=== PATIENT | male | born 1945 | race Caucasian/White ===

== ENCOUNTER 2019-10-06 11:03 | Inpatient (IN) | payer MEDICARE, BC ==
[2019-10-06] MEDS ORDERED: HYDROmorphone 1 MG/ML 1 ML SYRINGE IVP STA ×2 (11:22→12:59)
--- NOTE | 2019-10-06 11:22 | ED ---
General Adult HPI - General Stated complaint: Epigastric Pain Time Seen by Provider: 10/06/19 11:05 Source: patient, RN notes reviewed, old records reviewed - History of Present Illness Initial comments: This a 74-year-old male who presents emergency department from [facility]. Patient was evaluated there and had a CAT scan as well for his epigastric abdominal pain which started at midnight. They determined his ga llbladder was distended and they wanted to come here to get further evaluated. Patient's lab work was essentially normal except for white count of 11.7. Patient's troponin was normal and EKG was normal. Patient states the pain is in the epigastric to right upper quadrant region and is been improved with pain medications but does continue to come back once the pain medicines wear off. Patient denies any fever or chills. Patient states she is very nauseated. Patient denies diarrhea. - Related Data Allergies Allergy/AdvReac Type Severity Reaction Status Date / Time codeine Allergy Confusion Verified 10/06/19 11:25 Review of Systems ROS Statement: Those systems with pertinent positive or pertinent negative responses have been documented in the HPI. ROS Other: All systems not noted in ROS Statement are negative. General Exam - General Exam Comments Initial Comments: AGENERAL: Patient is well-developed and well-nourished. Patient is nontoxic and well- hydrated and is in mild distress. ENT: Neck is soft and supple. No significant lymphadenopathy is noted. Oropharynx is clear. Moist mucous membranes. Neck has full range of motion without eliciting any pain. EYES: The sclera were anicteric and conjunctiva were pink and moist. Extraocular movements were intact and pupils were equal round and reactive to light. Eyelids were unremarkable. PULMONARY: Unlabored respirations. Good breath sounds bilaterally. No audible rales rhonchi or wheezing was noted. CARDIOVASCULAR: There is a regular rate and rhythm without any murmurs gallops or rubs. ABDOMEN: Patient has right upper quadrant and epigastric abdominal pain on palpation SKIN: Skin is clear with no lesions or rashes and otherwise unremarkable. NEUROLOGIC: Patient is alert and oriented x3. Cranial nerves II through XII are grossly intact. Motor and sensory are also intact. Normal speech, volume and content. Symmetrical smile. MUSCULOSKELETAL: Normal extremities with adequate strength and full range of motion. No lower extremity swelling or edema. No calf tenderness. LYMPHATICS: No significant lymphadenopathy is noted PSYCHIATRIC: Normal psychiatric evaluation. Course Vital Signs 10/06/19 10/06/19 11:15 12:10 Temperature 98 F Pulse Rate 62 74 Respiratory 18 18 Rate Blood Pressure 171/90 181/94 O2 Sat by Pulse 97 97 Oximetry Medical Decision Making - Medical Decision Making Gallbladder is not thickened there are no gallstones and a common bile duct could not be visualized I spoke to Dr. Tatum he agreed to admit the patient he wanted the patient started on antibiotics and wanted Dr. quilesy consulted. - Lab Data Result diagrams: 10/06/19 11:34 10/06/19 11:34 Lab Results 10/06/19 10/06/19 10/06/19 Range/Units 11:34 11:34 11:34 WBC 18.6 H (3.8-10.6) k/uL RBC 5.50 (4.30-5.90) m/uL Hgb 16.8 (13.0-17.5) gm/dL Hct 50.3 (39.0-53.0) % MCV 91.5 (80.0-100.0) fL MCH 30.6 (25.0-35.0) pg MCHC 33.5 (31.0-37.0) g/dL RDW 12.7 (11.5-15.5) % Plt Count 110 L (150-450) k/uL Neutrophils % 90 % Lymphocytes % 5 % Monocytes % 4 % Eosinophils % 1 % Basophils % 0 % Neutrophils # 16.9 H (1.3-7.7) k/uL Lymphocytes # 0.8 L (1.0-4.8) k/uL Monocytes # 0.7 (0-1.0) k/uL Eosinophils # 0.1 (0-0.7) k/uL Basophils # 0.1 (0-0.2) k/uL Sodium 138 (137-145) mmol/L Potassium 4.9 (3.5-5.1) mmol/L Chloride 104 (98-107) mmol/L Carbon Dioxide 24 (22-30) mmol/L Anion Gap 10 mmol/L BUN 16 (9-20) mg/dL Creatinine 0.72 (0.66-1.25) mg/dL Est GFR (CKD-EPI)AfAm >90 (>60 ml/min/1.73 sqM) Est GFR (CKD-EPI)NonAf >90 (>60 ml/min/1.73 sqM) Glucose 128 H (74-99) mg/dL Calcium 9.2 (8.4-10.2) mg/dL Total Bilirubin 1.2 (0.2-1.3) mg/dL AST 38 (17-59) U/L ALT 34 (4-49) U/L Alkaline Phosphatase 71 (38-126) U/L Troponin I <0.012 (0.000-0.034) ng/mL Total Protein 7.2 (6.3-8.2) g/dL Albumin 4.4 (3.5-5.0) g/dL Lipase 48 (23-300) U/L Disposition Clinical Impression: Abdominal pain Disposition: ADMITTED IP TO THIS HOSP Referrals: Juma Gibbs MD [Primary Care Provider] - 1-2 days Time of Disposition: 12:51
[2019-10-06] MEDS ORDERED: ONDANSETRON 4 MG/2 ML VIAL IVP STA ×2 (11:45→21:40)
[2019-10-06 12:04] LABS: Basophils # (A) 0.1 k/uL (0-0.2); Basophils % (A) 0 %; Eosinophils # (A) 0.1 k/uL (0-0.7); Eosinophils % (A) 1 %; HCT 50.3 % (39.0-53.0); HGB 16.8 gm/dL (13.0-17.5); Lymphocytes # (A) 0.8 k/uL (1.0-4.8); Lymphocytes % (A) 5 %; MCH 30.6 pg (25.0-35.0); MCHC 33.5 g/dL (31.0-37.0); MCV 91.5 fL (80.0-100.0); Mean Platelet Volume 9.5; Monocytes # (A) 0.7 k/uL (0-1.0); Monocytes % (A) 4 %; Neutrophils # (A) 16.9 k/uL (1.3-7.7); Neutrophils % (A) 90 %; Platelet Count 110 k/uL (150-450); RDW 12.7 % (11.5-15.5); WBC 18.6 k/uL (3.8-10.6)
[2019-10-06 12:18] LABS: ALT 34 U/L (4-49); African American GFR (CKD) >90 (>60 ml/min/1.73 sqM); Albumin 4.4 g/dL (3.5-5.0); Anion Gap 10 mmol/L; Blood Urea Nitrogen 16 mg/dL (9-20); Calcium 9.2 mg/dL (8.4-10.2); Carbon Dioxide 24 mmol/L (22-30); Chloride 104 mmol/L (98-107); Glucose 128 mg/dL (74-99); Non-African American GFR(CKD) >90 (>60 ml/min/1.73 sqM); Sodium 138 mmol/L (137-145); Total Bilirubin 1.2 mg/dL (0.2-1.3); Total Protein 7.2 g/dL (6.3-8.2)
[2019-10-06 12:23] LABS: AST 38 U/L (17-59); Alkaline Phosphatase 71 U/L (38-126); Potassium 4.9 mmol/L (3.5-5.1)
--- NOTE | 2019-10-06 12:42 | US ---
EXAMINATION TYPE: US gallbladder DATE OF EXAM: 10/06/2019 COMPARISON: NONE CLINICAL HISTORY: Dilated gallbladder with right upper quadrant abdo. Patient states having a CT toda y at different facility that showed slightly dilated GB. Epigastric pain. EXAM MEASUREMENTS: Liver Length: 18.1 cm Gallbladder Wall: 0.3 cm Right Kidney: 9.6 x 5.8 x 5.6 cm Limited visualization due to overlying bowel gas Pancreas: Obscured by bowel gas Liver: Appears enlarged in size Gallbladder: size- 9.7 cm. No stones visualized Evidence for sonographic Ochoa's sign: neg CBD: Obscured by overlying bowel gas Right Kidney: No hydronephrosis or masses seen, IMPRESSION: 1. Hepatomegaly
[2019-10-06] MEDS ORDERED: SODIUM CHLORIDE 0.9% 1,000 ML IV ONE (12:51)
[2019-10-06] MEDS ORDERED: cloNIDine HCL 0.1 MG TAB PO PRN (14:07)
[2019-10-06] MEDS ORDERED: TEMAZEPAM 15 MG CAP PO PRN (14:07)
[2019-10-06] MEDS ORDERED: LORazepam 2 MG/ML INJ IV PRN (14:07)
[2019-10-06] MEDS: LEVOFLOXACIN 500MG-D5W PMX 500 MG in DEXTROSE/WATER 1 100ML.BAG IVPB SCH (15:39)
[2019-10-06] MEDS: PANTOPRAZOLE 40 MG/10 ML VIAL IVP SCH ×2 (15:39→21:34)
--- NOTE | 2019-10-06 15:55 | HP ---
HISTORY AND PHYSICAL CHIEF COMPLAINT: Abdominal pain. HISTORY OF PRESENT ILLNESS: This 74-year-old gentleman with a past medical history of hypertension, hyperlipidemia, history of hernia repair, shoulder surgery, being followed by Dr. Delroy Gibbs in the outpatient setting was apparently camping yesterday. Last night, the patient woke up with some nausea. The patient had epigastric abdominal pain mostly in the right quadrant at midnight and patient came to [facility] and gallbladder disease was suspected. A CT scan was done and the patient referred to [facility] for further evaluation and treatment. WBC was elevated. There is no history of fever, rigors or chills. No history of headache, loss of consciousness, seizures. PAST MEDICAL HISTORY: Hypertension, hyperlipidemia, history of shoulder surgery. MEDICATIONS: Lipitor 40 mg q.h.s., Ecotrin 81 mg q.h.s. ALLERGIES: CODEINE. FAMILY HISTORY: No history of heart disease or strokes in the family. SOCIAL HISTORY: No history of smoking. No history of alcohol intake. REVIEW OF SYSTEMS: ENT: No diminished vision. No diminished hearing. CARDIOVASCULAR: No angina or palpitations. RESPIRATION: No cough or hemoptysis. GI as mentioned earlier. : No dysuria. NERVOUS SYSTEM: No numbness or weakness. ALLERGY/IMMUNOLOGY: No asthma or hayfever. MUSCULOSKELETAL: As mentioned earlier. HEMATOLOGY/ONCOLOGY: No history of anemia. ENDOCRINE: No history of diabetes or hypothyroidism. CONSTITUTIONAL: As mentioned earlier. DERMATOLOGY: Negative. RHEUMATOLOGY: Negative. PSYCHIATRY: As mentioned earlier. PHYSICAL EXAMINATION: Alert and oriented times three. Pulse 82, blood pressure 161/87. Respiration 18, temperature 98 degrees, pulse ox 94% on 3 L. HEENT: Conjunctivae normal. NECK: No JVD. CARDIOVASCULAR: S1, S2 muffled. RESPIRATORY: Breath sounds diminished in the bases. No rhonchi. No crackles. ABDOMEN: Soft, mild diffuse discomfort on epigastrium and right upper quadrant. No guarding. No rigidity. No mass palpable. LEGS: No edema. No swelling. NERVOUS SYSTEM: Higher functions as mentioned. Moves all four limbs. No focal motor or sensory deficits. LYMPHATICS: No lymph nodes palpable in the neck, axillae or groin. SKIN: No ulcers, no rashes and no bleeding. JOINTS: No active deforming arthropathy. LABS: WBC 18.2, hemoglobin 15.8, platelets 110. Glucose 128. ASSESSMENT: 1. Acute upper abdominal pain possibly rule out cholecystitis. 2. Increased WBC. 3. Thrombocytopenia. 4. Increased random blood sugar. 5. Hypertension. 6. Hyperlipidemia. 7. History of shoulder surgery. 8. History of hernia repair. RECOMMENDATIONS AND DISCUSSION: In this 74-year-old gentleman who presented with multiple complex medical issues, we will monitor the patient closely. Continue the current medications, symptomatic treatment. We will initiate empiric antibiotics. Zosyn initiated. I would also recommend proton pump inhibitors. Surgical consultation. Ultrasound of the gallbladder was done which showed hepatomegaly. No other abnormality. Prognosis guarded. Further recommendations to follow. A copy of dictation being forwarded to Dr. Zeyad Gibbs who is the primary physician. YANETH / CACHORRON: [id number] /
[2019-10-06] MEDS: PIPERACILLIN-TAZOBACTAM 3.375 GM in SODIUM CHLORIDE 0.9% 100 ML IVPB SCH ×2 (17:33→23:28)
[2019-10-06 18:57] LABS: Appearance,Urine Clear (Clear); Bilirubin,Urine Negative (Negative); Blood,Urine Negative (Negative); Color,Urine Yellow; Glucose,Urine (UA) Negative (Negative); Ketones,Urine Negative (Negative); Leukocyte Esterase,Urine Negative (Negative); Nitrite,Urine Negative (Negative); PH, Urine 5.5 (5.0-8.0); Protein,Urine Negative (Negative); Specific Gravity,Urine 1.024 (1.001-1.035); Urobilinogen,Urine <2.0 mg/dL (<2.0)
[2019-10-06 19:06] LABS: Amphetamine Screen,Urine Not Detected (NotDetected); Cocaine Screen,Urine Not Detected (NotDetected); Opiate Screen,Urine Detected (NotDetected); Phencyclidine Screen,Urine Not Detected (NotDetected); Urn Cannabinoid Scrn Not Detected (NotDetected)
[2019-10-06 19:07] LABS: Barbiturate Screen,Urine Not Detected (NotDetected); Benzodiazepines Screen,Urine Detected (NotDetected); Methadone Screen, Urine Not Detected (NotDetected); Oxycodone Screen, Urine Not Detected (NotDetected); Tricyclic Antidepressant,Urine Not Detected (NotDetected)
--- NOTE | 2019-10-06 21:29 | NM ---
EXAMINATION TYPE: NM hepatobiliary wo EF DATE OF EXAM: 10/06/2019 COMPARISON: NONE HISTORY: TECHNIQUE: After the intravenous administration of 4.79 mCi Tc 99m Mebrofenin hepatobiliary scintigra phy is performed. Immediate images post injection. FINDINGS: There is prompt uptake of the tracer by the liver that has normal size and contour. There is no focal liver defect. There is tracer in the small bowel at 10 minutes. Tracer is mostly cleared from the li angel at 60 minutes. I do not see a definite gallbladder. No gallbladder uptake is seen. IMPRESSION: There is nonvisualization of the gallbladder that is suggestive of cystic duct obstructio n and cholecystitis. No evidence of common bile duct obstruction.
[2019-10-06] MEDS: FAMOTIDINE 20 MG/2 ML VIAL IV SCH (21:34)
[2019-10-06] MEDS: HEPARIN SODIUM,PORCINE 5,000 UNIT/ML 1 ML VIAL SQ SCH (21:34)
[2019-10-06] MEDS ORDERED: ONDANSETRON 4 MG/2 ML VIAL IVP PRN (23:57)
[2019-10-06] MEDS ORDERED: HYDROmorphone 0.5 MG/0.5 ML SYRINGE IVP PRN (23:58)
[2019-10-07] MEDS: PIPERACILLIN-TAZOBACTAM 3.375 GM in SODIUM CHLORIDE 0.9% 100 ML IVPB SCH ×3 (08:18→23:16)
[2019-10-07] MEDS: PANTOPRAZOLE 40 MG/10 ML VIAL IVP SCH ×2 (08:18→22:07)
[2019-10-07] MEDS: HEPARIN SODIUM,PORCINE 5,000 UNIT/ML 1 ML VIAL SQ SCH ×2 (08:18→22:08)
[2019-10-07] MEDS: FAMOTIDINE 20 MG/2 ML VIAL IV SCH (08:18)
[2019-10-07 08:42] LABS: Basophils # (A) 0.1 k/uL (0-0.2); Basophils % (A) 0 %; Eosinophils % (A) 0 %; HCT 44.9 % (39.0-53.0); HGB 15.2 gm/dL (13.0-17.5); Lymphocytes # (A) 1.3 k/uL (1.0-4.8); Lymphocytes % (A) 6 %; MCH 30.8 pg (25.0-35.0); MCHC 33.9 g/dL (31.0-37.0); MCV 90.9 fL (80.0-100.0); Mean Platelet Volume 7.4; Monocytes # (A) 1.2 k/uL (0-1.0); Monocytes % (A) 5 %; Neutrophils # (A) 20.4 k/uL (1.3-7.7); Neutrophils % (A) 88 %; RBC 4.94 m/uL (4.30-5.90); RDW 12.5 % (11.5-15.5); WBC 23.2 k/uL (3.8-10.6)
[2019-10-07 08:43] LABS: Albumin 3.5 g/dL (3.5-5.0); Calcium 8.3 mg/dL (8.4-10.2); Platelet Count 193 k/uL (150-450); Potassium 4.1 mmol/L (3.5-5.1); Total Bilirubin 1.4 mg/dL (0.2-1.3); Total Protein 5.8 g/dL (6.3-8.2)
[2019-10-07] MEDS: LEVOFLOXACIN 500MG-D5W PMX 500 MG in DEXTROSE/WATER 1 100ML.BAG IVPB SCH (15:35)
[2019-10-07] MEDS ORDERED: IV FLUID CONTINUATION 1,000 ML IV ONE (16:23)
--- NOTE | 2019-10-07 17:07 | P.GSCN ---
History of Present Illness Consult date: 10/07/19 History of present illness: This is a 74-year-old male is a former he states that over the last few days he began having worsening right upper quadrant pain which brought him to the hospital in [place] this hospital been transferred him to [facility]. Patient initially had an ultrasound which showed a distended gallbladder and a HIDA scan was then ordered which was positive for nonvisualization of gallbladder. Patient states that today he is still having right upper quadrant pain. He denies any fevers or chills. He's had an appendectomy before in the past. He has hypertension which is controlled no other medical or surgical history that significant. Past Medical History Past Medical History: Hyperlipidemia, Hypertension Additional Past Medical History / Comment(s): mumps History of Any Multi-Drug Resistant Organisms: None Reported Past Surgical History: Appendectomy, Hernia Repair Additional Past Surgical History / Comment(s): SHOULDER SX has had multiple hernia surgeries. Did have mesh, has since have remvoed. Past Anesthesia/Blood Transfusion Reactions: No Reported Reaction Past Psychological History: No Psychological Hx Reported Smoking Status: Never smoker Past Alcohol Use History: None Reported Past Drug Use History: None Reported - Past Family History Father Family Medical History: Myocardial Infarction (LA) Additional Family Medical History / Comment(s): had history of cancer, from [place] Mother Family Medical History: Coronary Artery Disease (CAD) Medications and Allergies Home Medications Medication Instructions Recorded Confirmed Type Aspirin [Adult Low Dose Aspirin EC] 81 mg PO HS 10/06/19 10/06/19 History Atorvastatin Calcium [Lipitor] 40 mg PO HS 10/06/19 10/06/19 History Allergies Allergy/AdvReac Type Severity Reaction Status Date / Time codeine Allergy Confusion Verified 10/06/19 13:14 Surgical - Exam Osteopathic Statement: *. No significant issues noted on an osteopathic structural exam other than those noted in the History and Physical/Consult. Vital Signs Temp Pulse Resp BP Pulse Ox 98 F 62 18 171/90 97 10/06/19 11:15 10/06/19 11:15 10/06/19 11:15 10/06/19 11:15 10/06/19 11:15 - General well developed, well nourished, no distress - Neck no masses - Respiratory normal expansion, normal respiratory effort - Cardiovascular Rhythm: regular - Abdomen Tender to palpation right upper quadrant no rebound rigidity or guarding Abdomen: soft - Neurologic normal coordination, normal sensation Results - Labs 10/07/19 07:27 10/07/19 07:27 Abnormal Lab Results - Last 24 Hours (Table) 10/06/19 10/07/19 10/07/19 Range/Units 18:49 07:27 07:27 WBC 23.2 H (3.8-10.6) k/uL Neutrophils # 20.4 H (1.3-7.7) k/uL Monocytes # 1.2 H (0-1.0) k/uL Sodium 135 L (137-145) mmol/L Calcium 8.3 L (8.4-10.2) mg/dL Total Bilirubin 1.4 H (0.2-1.3) mg/dL Total Protein 5.8 L (6.3-8.2) g/dL Urine Opiates Screen Detected H (NotDetected) U Benzodiazepines Scrn Detected H (NotDetected) Diabetes panel 10/07/19 Range/Units 07:27 Sodium 135 L (137-145) mmol/L Potassium 4.1 (3.5-5.1) mmol/L Chloride 102 (98-107) mmol/L Carbon Dioxide 24 (22-30) mmol/L BUN 14 (9-20) mg/dL Creatinine 0.99 (0.66-1.25) mg/dL Glucose 89 (74-99) mg/dL Calcium 8.3 L (8.4-10.2) mg/dL AST 24 (17-59) U/L ALT 25 (4-49) U/L Alkaline Phosphatase 55 (38-126) U/L Total Protein 5.8 L (6.3-8.2) g/dL Albumin 3.5 (3.5-5.0) g/dL Calcium panel 10/07/19 Range/Units 07:27 Calcium 8.3 L (8.4-10.2) mg/dL Albumin 3.5 (3.5-5.0) g/dL Pituitary panel 10/07/19 Range/Units 07:27 Sodium 135 L (137-145) mmol/L Potassium 4.1 (3.5-5.1) mmol/L Chloride 102 (98-107) mmol/L Carbon Dioxide 24 (22-30) mmol/L BUN 14 (9-20) mg/dL Creatinine 0.99 (0.66-1.25) mg/dL Glucose 89 (74-99) mg/dL Calcium 8.3 L (8.4-10.2) mg/dL Adrenal panel 10/07/19 Range/Units 07:27 Sodium 135 L (137-145) mmol/L Potassium 4.1 (3.5-5.1) mmol/L Chloride 102 (98-107) mmol/L Carbon Dioxide 24 (22-30) mmol/L BUN 14 (9-20) mg/dL Creatinine 0.99 (0.66-1.25) mg/dL Glucose 89 (74-99) mg/dL Calcium 8.3 L (8.4-10.2) mg/dL Total Bilirubin 1.4 H (0.2-1.3) mg/dL AST 24 (17-59) U/L ALT 25 (4-49) U/L Alkaline Phosphatase 55 (38-126) U/L Total Protein 5.8 L (6.3-8.2) g/dL Albumin 3.5 (3.5-5.0) g/dL Assessment and Plan Assessment: Acute cholecystitis Plan: I discussed the findings of acute cholecystitis the patient risks benefits and alternatives to laparoscopic cholecystectomy were discussed risks including bleeding infection damage surrounding tissue need for further operation damage to common bile duct and need for conversion to open were all discussed patient stated he understood these agreed and consented to the procedure. Informed consent was obtained. Nothing by mouth and on IV antibiotics until surgery.
[2019-10-07] MEDS ORDERED: PROPOFOL 10 MG/ML 20 ML VIAL IV ONE (17:09)
[2019-10-07] MEDS ORDERED: MIDAZOLAM 2 MG/2 ML VIAL ONE (17:09)
[2019-10-07] MEDS ORDERED: LIDOCAINE 1% INJ 10MG/ML (20 ML MDV) ONE (17:09)
[2019-10-07] MEDS ORDERED: fentaNYL (PF) 50 MCG/ML 2 ML AMP ONE (17:09)
[2019-10-07] MEDS ORDERED: ROCURONIUM BROMIDE 10 MG/ML 5 ML VIAL IV ONE (17:09)
[2019-10-07] MEDS ORDERED: ONDANSETRON 4 MG/2 ML VIAL ONE (17:09)
[2019-10-07] MEDS ORDERED: SUCCINYLCHOLINE CHLORIDE 100 MG/5 ML SYR IV ONE (17:09)
[2019-10-07] MEDS ORDERED: LACTATED RINGERS 1,000 ML IV ONE (17:30)
[2019-10-07] MEDS ORDERED: BUPIVACAINE (PF) 0.5% 30 ML VIAL SQ ONE ×2 (17:37)
--- NOTE | 2019-10-07 19:11 | P.OP ---
Date of Procedure: 10/07/19 Preoperative Diagnosis: Acute cholecystitis Postoperative Diagnosis: Acute cholecystitis Procedure(s) Performed: Laparoscopic cholecystectomy Anesthesia: ALEX Surgeon: Guanakito Llanes Estimated Blood Loss (ml): 100 Condition: stable Disposition: PACU Description of Procedure: Patient was brought operative suite remained in the supine position underwent general endotracheal anesthesia per Department of anesthesia timeout was performed correct patient correct procedure correct site was verified. A 15 mm incision was made carried down the fascia in the superior umbilicus. The abdomen was entered under direct visualization 12 mm port was placed abdomen was insufflated no injuries were noted. 3 5mm ports were placed in the right upper quadrant under direct visualization the patient was placed in reverse Trendelenburg right side up the gallbladder was noted to be acutely inflamed with omentum densely adhered. The adhesions to the gallbladder were taken down bluntly the cystic duct and cystic artery were skeletonized critical view was obtained the cystic duct was noted to be going directly into the gallbladder it was also noted to be quite dilated the midepigastric port site was upsized to a 12 mm port and a 45 mm purple load Endo SHARIFA stapler was used to staple across the cystic duct. The cystic artery was doubly clipped and ligated. The gallbladder was removed from the liver bed using Bovie electrocautery. Due to the acute inflammation on the liver bed there was some oozing this was controlled with pressure and Surgicel. LUIS MIGUEL drain was placed. Hemostasis was noted the abdomen was copiously irrigated and suctioned. The gallbladder was removed through the midepigastric port site. All ports removed under direct visualization. The abdomen was desufflated. The LUIS MIGUEL drain was sutured in place with a 3-0 silk the fascia from the supraumbilical and epigastric port sites was closed with 0 Vicryl in an interrupted fashion the skin was closed with 4-0 Monocryl and skin glue patient tolerated the procedure well no apparent complications
--- NOTE | 2019-10-08 02:39 | PN ---
PROGRESS NOTE DATE OF SERVICE: 10/07/2019 This 74-year-old gentleman who was admitted with abdominal pain, was thought to have acute cholecystitis. Surgery is following the patient closely. No chest pain or palpitation. PHYSICAL EXAMINATION: On exam, alert and oriented x3. Pulse 97, blood pressure 138/74, respiration 12, T-max 100.2, temperature 97 degrees, pulse ox 92% on room air. HEENT: Conjunctivae normal. NECK: No jugular venous distention. CARDIOVASCULAR: S1, S2 muffled. RESPIRATORY: Breath sounds diminished at the bases. No rhonchi, no crackles. ABDOMEN: Soft, mild diffuse tenderness in the right upper quadrant. NERVOUS SYSTEM: No focal deficits. LABS: WBC is 23.2, hemoglobin 15.2 sodium 135, total bilirubin is 1.4. positive. ASSESSMENT: 1. Acute abdominal pain with acute cholecystitis. 2. Increased WBC. 3. Thrombocytopenia. 4. Increased random blood sugar. 5. Hypertension. 6. Hyperlipidemia. 7. History of shoulder surgery. 8. History of hernia repair. RECOMMENDATIONS AND DISCUSSION: Recommend to continue current medications, continue symptomatic treatment. Otherwise, would recommend follow closely with surgery for possible cholecystectomy. Guarded prognosis. Further recommendations to follow. MMODL / IJN: [id number] / STEPHAN
[2019-10-08 06:42] LABS: Basophils % (A) 0 %; Eosinophils # (A) 0.1 k/uL (0-0.7); Eosinophils % (A) 1 %; HCT 42.3 % (39.0-53.0); Lymphocytes # (A) 1.3 k/uL (1.0-4.8); Lymphocytes % (A) 9 %; MCH 30.2 pg (25.0-35.0); MCHC 33.2 g/dL (31.0-37.0); MCV 91.1 fL (80.0-100.0); Mean Platelet Volume 7.3; Monocytes # (A) 0.6 k/uL (0-1.0); Monocytes % (A) 4 %; Neutrophils # (A) 12.3 k/uL (1.3-7.7); Neutrophils % (A) 85 %; Platelet Count 174 k/uL (150-450); RBC 4.65 m/uL (4.30-5.90); RDW 12.5 % (11.5-15.5); WBC 14.5 k/uL (3.8-10.6)
[2019-10-08 06:52] LABS: Calcium 8.1 mg/dL (8.4-10.2); Total Bilirubin 1.3 mg/dL (0.2-1.3); Total Protein 5.3 g/dL (6.3-8.2)
[2019-10-08] MEDS: PANTOPRAZOLE 40 MG/10 ML VIAL IVP SCH ×2 (07:24→22:06)
[2019-10-08] MEDS: HEPARIN SODIUM,PORCINE 5,000 UNIT/ML 1 ML VIAL SQ SCH ×2 (07:24→22:06)
[2019-10-08] MEDS: PIPERACILLIN-TAZOBACTAM 3.375 GM in SODIUM CHLORIDE 0.9% 100 ML IVPB SCH (07:24)
--- NOTE | 2019-10-08 16:24 | P.PN ---
Subjective Progress Note Date: 10/08/19 Patient is feeling much better today, tolerating clears no complaints. Objective - Vital Signs Vital signs: Vital Signs Temp 98.9 F 10/07/19 23:00 Pulse 89 10/07/19 23:00 Resp 16 10/07/19 23:00 BP 134/75 10/07/19 23:00 Pulse Ox 94 L 10/07/19 23:00 Intake & Output 10/07/19 10/08/19 10/08/19 18:59 06:59 18:59 Intake Total 1600 100 560 Output Total 071 695 8418 Balance 8016 -592 -362 Intake: IV 500 100 Intake, IV Titration 1100 Amount Levofloxacin 500Mg-D5w 1000 Pmx 500 mg In Dextrose/ Water 1 100ml.bag @ 100 mls/hr IVPB Q24H COUNT INCLUDES THE [facility] Rx#: [id number] Piperacillin-Tazobactam 3 100 .375 gm In Sodium Chloride 0.9% 100 ml @ 25 mls/hr IVPB Q8HR ANGELY Rx# :[id number] Oral 560 Output: Drainage 55 25 Right Abdomen 55 25 Urine 775 1000 Estimated Blood Loss 100 Other: Voiding Method Toilet Urinal Urinal # Voids 1 - Constitutional General appearance: Present: cooperative - Respiratory Details: nonlabored - Cardiovascular Rhythm: regular - Gastrointestinal Gastrointestinal Comment(s): S/NT/ND LUIS MIGUEL serosang - Psychiatric Psychiatric: Present: A&O x's 3 - Labs CBC & Chem 7: 10/08/19 05:53 10/08/19 05:53 Labs: Abnormal Lab Results - Last 24 Hours (Table) 10/08/19 10/08/19 Range/Units 05:53 05:53 WBC 14.5 H (3.8-10.6) k/uL Neutrophils # 12.3 H (1.3-7.7) k/uL Sodium 135 L (137-145) mmol/L Calcium 8.1 L (8.4-10.2) mg/dL Total Protein 5.3 L (6.3-8.2) g/dL Albumin 3.0 L (3.5-5.0) g/dL Microbiology - Last 24 Hours (Table) 10/06/19 19:15 Blood Culture - Preliminary Blood No Growth after 24 hours Assessment and Plan Assessment: Acute cholecystitis Plan: Patient doing well today, advance to low fat diet as tolerated. Likely will be ready for DC home tomorrow pending AM labs. LUIS MIGUEL will be DCed prior to discharge.
--- NOTE | 2019-10-08 17:22 | PN ---
PROGRESS NOTE DATE OF SERVICE: 10/08/2019 This 74-year-old gentleman admitted with acute cholecystitis had laparoscopic cholecystectomy by Dr. Llanes yesterday. No chest pain. No palpitations. No fever. PHYSICAL EXAMINATION: Alert and oriented x3. Pulse is 89, blood pressure 134/75, respirations 16, temperature 98.9, pulse ox 94% on 3 L. HEENT: Conjunctivae normal. NECK: No jugular venous distention. CARDIOVASCULAR SYSTEM: S1, S2 muffled. RESPIRATORY SYSTEM: Breath sounds diminished at the bases. No rhonchi. No crackles. ABDOMEN: Soft. Mild diffuse tenderness. LEGS: No edema. No swelling. NERVOUS SYSTEM: No focal deficit. LABS: WBC 14.4. Sodium is 135. Albumin is 3. ASSESSMENT: 1. Acute abdominal pain with acute cholecystitis, status post laparoscopic cholecystectomy. 2. Increased white count. 3. Thrombocytopenia. 4. Increased random blood sugar. 5. Hypertension. 6. Hyperlipidemia. 7. History of shoulder surgery. 8. History of hernia repair. RECOMMENDATIONS AND DISCUSSION: I recommend to continue current medications, continue with IV antibiotics. Otherwise, closely follow with Surgery. Incentive spirometry. Further recommendations to follow. MMODL / IJN: [id number] /
[2019-10-09 07:03] LABS: Basophils % (A) 0 %; Eosinophils # (A) 0.3 k/uL (0-0.7); Eosinophils % (A) 3 %; HCT 41.4 % (39.0-53.0); HGB 13.9 gm/dL (13.0-17.5); Lymphocytes # (A) 1.3 k/uL (1.0-4.8); Lymphocytes % (A) 14 %; MCH 30.6 pg (25.0-35.0); MCHC 33.6 g/dL (31.0-37.0); Mean Platelet Volume 7.4; Monocytes # (A) 0.6 k/uL (0-1.0); Monocytes % (A) 6 %; Neutrophils % (A) 74 %; Platelet Count 215 k/uL (150-450); RBC 4.55 m/uL (4.30-5.90); RDW 12.5 % (11.5-15.5); WBC 9.4 k/uL (3.8-10.6)
[2019-10-09 07:04] LABS: ALT 38 U/L (4-49); AST 32 U/L (17-59); African American GFR (CKD) >90 (>60 ml/min/1.73 sqM); Albumin 3.1 g/dL (3.5-5.0); Alkaline Phosphatase 61 U/L (38-126); Anion Gap 6 mmol/L; Blood Urea Nitrogen 14 mg/dL (9-20); Calcium 7.9 mg/dL (8.4-10.2); Carbon Dioxide 27 mmol/L (22-30); Chloride 104 mmol/L (98-107); Glucose 99 mg/dL (74-99); Non-African American GFR(CKD) 86 (>60 ml/min/1.73 sqM); Potassium 4.1 mmol/L (3.5-5.1); Sodium 137 mmol/L (137-145); Total Bilirubin 0.8 mg/dL (0.2-1.3); Total Protein 5.4 g/dL (6.3-8.2)
[2019-10-09 08:07] VITALS: BP 148/92; PULSE 83; RESP 14; TEMP 98.5
[2019-10-09] MEDS: PANTOPRAZOLE 40 MG/10 ML VIAL IVP SCH (08:27)
[2019-10-09] MEDS: HEPARIN SODIUM,PORCINE 5,000 UNIT/ML 1 ML VIAL SQ SCH (08:27)
--- NOTE | 2019-10-09 17:49 | P.DS ---
Providers Date of admission: 10/08/19 11:16 Attending physician: Shonna Tatum Consults: 10/06/19 12:51 Consult Physician Urgent Consulting Provider: Guanakito Llanes Consult Reason/Comments: Abdominal pain Do you want consulting provider notified?: Yes Primary care physician: Juma Gibbs MD Hospital Course: 74-year-old pleasant gentleman was admitted the secondary to acute cholecystitis and patient went underwent laparoscopic cholecystectomy clinically doing well pain free patient the has good bowel sounds is passing gas is cleared for discharge from surgical perspective is being discharged today. PHYSICAL EXAMINATION: GENERAL: The patient is alert and oriented x3, not in any acute distress. Well developed, well nourished. HEENT: Pupils are round and equally reacting to light. EOMI. No scleral icterus. No conjunctival pallor. Normocephalic, atraumatic. No pharyngeal erythema. No thyromegaly. CARDIOVASCULAR: S1 and S2 present. No murmurs, rubs, or gallops. PULMONARY: Chest is clear to auscultation, no wheezing or crackles. ABDOMEN: Soft, nontender, nondistended, normoactive bowel sounds. No palpable organomegaly. MUSCULOSKELETAL: No joint swelling or deformity. EXTREMITIES: No cyanosis, clubbing, or pedal edema. NEUROLOGICAL: Gross neurological examination did not reveal any focal deficits. SKIN: No rashes. For other chronic medical problems aspiration course please refer to the HPI and progress note from Plan - Discharge Summary Discharge Rx Participant: Yes New Discharge Prescriptions: No Action Atorvastatin Calcium [Lipitor] 40 mg PO HS Aspirin [Adult Low Dose Aspirin EC] 81 mg PO HS Discharge Medication List Aspirin [Adult Low Dose Aspirin EC] 81 mg PO HS 10/06/19 [History] Atorvastatin Calcium [Lipitor] 40 mg PO HS 10/06/19 [History] Follow up Appointment(s)/Referral(s): Guanakito Llanes DO [Doctor of Osteopathic Medicine] - 1 Week Juma Gibbs MD [Primary Care Provider] - 3 Days Patient Instructions/Handouts: Cholecystitis (GEN), Laparoscopic Cholecystectomy (DC) Discharge Disposition: HOME SELF-CARE
--- NOTE | 2019-10-11 13:46 | CDI ---
Documentation Clarification Form Date: 10/11/19 From: Lori Herring CCS Phone: If you have a question about this query, please contact Daniella Gross, Slitter Helper at [phone] between 8am and 5pm. Admit Date: 10/08/19 Discharge Date: 10/09/19 Patient Name: Rocky Holt Visit Number: [id number] ATTENTION: The Clinical Documentation Specialists (CDI) and [facility] Coding Staff appreciate your assistance in clarifying documentation. Please respond to the clarification below the line at the bottom and electronically sign. The CDI & [facility] Coding staff will review the response and follow-up if needed. Please note: Queries are made part of the Legal Health Record. If you have any questions, please contact the author of this message via ITS. Dear Dr. Mike, The final diagnosis of the pathology report states: Gangrenous acute cholecystitis Documentation states: Acute cholecystitis Patient history/risk factors: HTN, Thrombocytopenia Clinical Indicators: Acute cholecystitis Treatment: Laparoscopic cholecystectomy In your professional opinion, do you agree with the pathology report specifying gangrenous acute cholecystitis? Yes No Other (please specify) Unable to determine Yes MTDD
== END 2019-10-09 15:15 | disposition home or self-care (01) | DRG 419 ==
LOC: EC 11:03 → 1SOBS 12:51 → OBSVTOIN 10-08 11:16
PROVIDERS: ADMIT Hospitalist; ATTEND Hospitalist
PROC: 0FT44ZZ Resection of Gallbladder, Percutaneous Endoscopic Approach (ICD-10-PCS; principal; 2019-10-07 15:30)
DX: K81.0 Acute cholecystitis (principal); Z11.59 Encounter for screening for other viral diseases; K82.A1 Gangrene of gallbladder in cholecystitis; D69.6 Thrombocytopenia, unspecified; I10 Essential (primary) hypertension; E78.5 Hyperlipidemia, unspecified; Z79.82 Long term (current) use of aspirin; Z79.899 Other long term (current) drug therapy; Z98.890 Other specified postprocedural states; Z90.49 Acquired absence of other specified parts of digestive tract; Z88.5 Allergy status to narcotic agent; Z82.49 Family history of ischemic heart disease and other diseases of the circulatory system; Z80.9 Family history of malignant neoplasm, unspecified
CPT/HCPCS: 36415; 76705; 78226; 80053; 80306; 81003; 83690; 84484; 85025; 85652; 86140; 87040; 88304; 96361; 96374; 96375; 96376; 99285

== ENCOUNTER 2022-03-08 15:58 | Inpatient (IN) | payer MEDICARE, BC ==
[2022-03-08 17:41] LABS: Basophils # (A) 0.1 k/uL (0-0.2); Basophils % (A) 0 %; Eosinophils % (A) 0 %; HCT 45.3 % (39.0-53.0); HGB 15.3 gm/dL (13.0-17.5); Lymphocytes # (A) 0.6 k/uL (1.0-4.8); Lymphocytes % (A) 3 %; MCH 30.3 pg (25.0-35.0); MCHC 33.7 g/dL (31.0-37.0); MCV 89.8 fL (80.0-100.0); Mean Platelet Volume 8.4; Monocytes # (A) 0.9 k/uL (0-1.0); Monocytes % (A) 4 %; Neutrophils # (A) 18.2 k/uL (1.3-7.7); Neutrophils % (A) 92 %; Platelet Count 274 k/uL (150-450); RBC 5.04 m/uL (4.30-5.90); RDW 12.7 % (11.5-15.5); WBC 19.8 k/uL (3.8-10.6)
[2022-03-08 17:49] LABS: INR 1.1 (<1.2); Partial Thromboplastin Time 24.6 sec (22.0-30.0); Prothrombin Time 11.3 sec (9.0-12.0)
[2022-03-08 17:50] LABS: ALT 273 U/L (4-49); AST 258 U/L (17-59); African American GFR (CKD) >90 (>60 ml/min/1.73 sqM); Alkaline Phosphatase 508 U/L (38-126); Amylase 50 U/L (30-110); Anion Gap 12 mmol/L; Blood Urea Nitrogen 15 mg/dL (9-20); Calcium 9.5 mg/dL (8.4-10.2); Carbon Dioxide 20 mmol/L (22-30); Chloride 103 mmol/L (98-107); Glucose 134 mg/dL (74-99); Lipase 221 U/L (23-300); Non-African American GFR(CKD) 88 (>60 ml/min/1.73 sqM); Sodium 135 mmol/L (137-145); Total Bilirubin 8.4 mg/dL (0.2-1.3); Total Protein 7.1 g/dL (6.3-8.2)
--- NOTE | 2022-03-08 18:02 | XR ---
EXAMINATION TYPE: XR KUB DATE OF EXAM: 03/08/2022 5:45 PM INDICATION: Patient age:Male; 77 years old; Reason for study: abdominal pain; COMPARISON: None. TECHNIQUE: One radiographic view of the abdomen was obtained. FINDINGS: The bowel gas pattern is nonspecific without dilated loops of small or large bowel. There i s no evidence for organomegaly or pneumoperitoneum. The osseous structures are intact. No abnormal calcifications are present. Fecal material and gas are demonstrated throughout the colon and rectum. Right upper quadrant cholecystectomy clips. IMPRESSION: Nonspecific bowel gas pattern without radiographic evidence for acute process.
--- NOTE | 2022-03-08 19:25 | US ---
EXAMINATION TYPE: US gallbladder DATE OF EXAM: 03/08/2022 COMPARISON: 10/06/19 CLINICAL HISTORY: abdominal pain. epigastric pain x 1 day. Cholecystectomy 3 years ago TECHNIQUE: Multiple sonographic images of the right upper quadrant are obtained. FINDINGS: EXAM MEASUREMENTS: Liver Length: 16.9 cm Gallbladder Wall: Surgically absent CBD: 1.0 cm Right Kidney: 10.5 x 5.3 x 5.5 cm [facility] NOTES: Pancreas: Parts visualized appear wnl. Duct measuring 3.2mm Liver: wnl Gallbladder: Surgically absent Evidence for sonographic Ochoa's sign: No CBD: upper limits of normal for post cholecystectomy Right Kidney: Dilated renal pelvis IMPRESSION: Cholecystectomy. There is mild ectasia of the bile ducts which appear slightly increased compared to old exam.
[2022-03-08] MEDS ORDERED: MORPHINE SULFATE 4 MG/ML SYRINGE IVP STA (20:43)
[2022-03-08] MEDS ORDERED: NALOXONE 0.4 MG/ML 1 ML VIAL IV PRN (21:48)
--- NOTE | 2022-03-08 22:01 | ED ---
General Adult HPI - General Chief complaint: Abdominal Pain Stated complaint: Chest pain Time Seen by Provider: 03/08/22 19:27 Source: patient Mode of arrival: wheelchair Limitations: no limitations - History of Present Illness Initial comments: This is a 77-year-old male who is presenting to the [facility] department today because he was sent in by the emergency department by his GI physician for a planned surgery tomorrow. The patient has a likely bile duct stone and had increasing bilirubin levels. The patient was seen and evaluated by Dr. Simmons in the office today who did recommend the patient come to the emergency department to be admitted for a procedure tomorrow morning. The patient was increasingly jaundiced with increasing right upper quadrant pain at this time. The patient denied any other acute pain or complaints at this time. The patient stated that he has had decreased appetite as well as inability to sleep secondary to continued abdominal pain and discomfort. The patient denied any fevers and chills however. - Related Data Home Medications Medication Instructions Recorded Confirmed Atorvastatin Calcium [Lipitor] 40 mg PO HS 10/06/19 10/06/19 Acetaminophen/Diphenhydramine 1 tab PO HS 03/08/22 03/08/22 [Tylenol PM 500-25mg] Losartan Potassium [Cozaar] 25 mg PO DAILY 03/08/22 03/08/22 Allergies Allergy/AdvReac Type Severity Reaction Status Date / Time codeine Allergy Confusion Verified 03/08/22 21:15 Review of Systems ROS Statement: Those systems with pertinent positive or pertinent negative responses have been documented in the HPI. ROS Other: All systems not noted in ROS Statement are negative. Past Medical History Past Medical History: Hyperlipidemia, Hypertension Additional Past Medical History / Comment(s): mumps History of Any Multi-Drug Resistant Organisms: None Reported Past Surgical History: Appendectomy, Hernia Repair Additional Past Surgical History / Comment(s): SHOULDER SX has had multiple hernia surgeries. Did have mesh, has since have remvoed. Past Anesthesia/Blood Transfusion Reactions: No Reported Reaction Past Psychological History: No Psychological Hx Reported Past Alcohol Use History: None Reported Past Drug Use History: None Reported - Past Family History Father Family Medical History: Myocardial Infarction ([place]) Additional Family Medical History / Comment(s): had history of cancer, from [place] Mother Family Medical History: Coronary Artery Disease (CAD) General Exam Limitations: no limitations General appearance: alert, in no apparent distress Head exam: Present: atraumatic, normocephalic Eye exam: Present: normal appearance, PERRL Pupils: Present: normal accommodation ENT exam: Present: normal exam, normal oropharynx, mucous membranes moist Neck exam: Present: normal inspection, full ROM Respiratory exam: Present: normal lung sounds bilaterally Cardiovascular Exam: Present: regular rate, normal rhythm, normal heart sounds GI/Abdominal exam: Present: soft, tenderness (Tenderness noted in the right uppe r quadrant) Extremities exam: Present: normal inspection, full ROM, normal capillary refill Back exam: Present: normal inspection, full ROM Neurological exam: Present: alert, oriented X3, CN II-XII intact Psychiatric exam: Present: normal affect, normal mood Skin exam: Present: warm, dry, other (Jaundiced) Course Vital Signs 03/08/22 03/08/22 16:30 20:25 Temperature 98.7 F Pulse Rate 99 95 Respiratory 20 18 Rate Blood Pressure 149/63 148/84 O2 Sat by Pulse 95 95 Oximetry Medical Decision Making - Medical Decision Making The patient was seen and evaluated numerous department. Physical exam, the patient was resting in bed without any acute distress. Vital signs admission were stable and within normal limits. Due to the nature the patient's complaints, laboratory workup was obtained in triage including a KUB x-ray as well as ultrasound of the right upper quadrant. Laboratory workup was also obtained that showed an elevated white blood cell count as well as significant elevated liver enzymes including a bilirubin of 8.4. KUB x-ray was obtained and was interpreted by myself showing a nonspecific bowel gas pattern without e vidence of acute process. The right upper quadrant abdominal ultrasound was also obtained and was interpreted by myself. Ultrasound showed cholecystectomy with mild ectasia of the bile ducts which appears of the increased compared to the old exam. His findings in the setting of the GI physician Dr. Simmons was contacted at [phone] and she did not recommend any further intervention or management excepted IV with pain medications. The patient was made nothing by mouth at midnight. The patient was to be admitted to Dr. Tatum and Guanakito Angulo was contacted at [phone] for admission and accepted. The patient and his are told of this plan and were agreeable. The patient was admitted in stable c ondition. - Lab Data Result diagrams: 03/08/22 16:56 03/08/22 16:56 Lab Results 03/08/22 03/08/22 03/08/22 Range/Units 16:56 16:56 16:56 WBC 19.8 H (3.8-10.6) k/uL RBC 5.04 (4.30-5.90) m/uL Hgb 15.3 (13.0-17.5) gm/dL Hct 45.3 (39.0-53.0) % MCV 89.8 (80.0-100.0) fL MCH 30.3 (25.0-35.0) pg MCHC 33.7 (31.0-37.0) g/dL RDW 12.7 (11.5-15.5) % Plt Count 274 (150-450) k/uL MPV 8.4 Neutrophils % 92 % Lymphocytes % 3 % Monocytes % 4 % Eosinophils % 0 % Basophils % 0 % Neutrophils # 18.2 H (1.3-7.7) k/uL Lymphocytes # 0.6 L (1.0-4.8) k/uL Monocytes # 0.9 (0-1.0) k/uL Eosinophils # 0.0 (0-0.7) k/uL Basophils # 0.1 (0-0.2) k/uL PT 11.3 (9.0-12.0) sec INR 1.1 (<1.2) APTT 24.6 (22.0-30.0) sec Sodium 135 L (137-145) mmol/L Potassium 4.0 (3.5-5.1) mmol/L Chloride 103 (98-107) mmol/L Carbon Dioxide 20 L (22-30) mmol/L Anion Gap 12 mmol/L BUN 15 (9-20) mg/dL Creatinine 0.76 (0.66-1.25) mg/dL Est GFR (CKD-EPI)AfAm >90 (>60 ml/min/1.73 sqM) Est GFR (CKD-EPI)NonAf 88 (>60 ml/min/1.73 sqM) Glucose 134 H (74-99) mg/dL Calcium 9.5 (8.4-10.2) mg/dL Total Bilirubin 8.4 H (0.2-1.3) mg/dL AST 258 H (17-59) U/L ALT 273 H (4-49) U/L Alkaline Phosphatase 508 H (38-126) U/L Troponin I (0.000-0.034) ng/mL Total Protein 7.1 (6.3-8.2) g/dL Albumin 4.0 (3.5-5.0) g/dL Amylase 50 (30-110) U/L Lipase 221 (23-300) U/L 03/08/22 Range/Units 16:56 WBC (3.8-10.6) k/uL RBC (4.30-5.90) m/uL Hgb (13.0-17.5) gm/dL Hct (39.0-53.0) % MCV (80.0-100.0) fL MCH (25.0-35.0) pg MCHC (31.0-37.0) g/dL RDW (11.5-15.5) % Plt Count (150-450) k/uL MPV Neutrophils % % Lymphocytes % % Monocytes % % Eosinophils % % Basophils % % Neutrophils # (1.3-7.7) k/uL Lymphocytes # (1.0-4.8) k/uL Monocytes # (0-1.0) k/uL Eosinophils # (0-0.7) k/uL Basophils # (0-0.2) k/uL PT (9.0-12.0) sec INR (<1.2) APTT (22.0-30.0) sec Sodium (137-145) mmol/L Potassium (3.5-5.1) mmol/L Chloride (98-107) mmol/L Carbon Dioxide (22-30) mmol/L Anion Gap mmol/L BUN (9-20) mg/dL Creatinine (0.66-1.25) mg/dL Est GFR (CKD-EPI)AfAm (>60 ml/min/1.73 sqM) Est GFR (CKD-EPI)NonAf (>60 ml/min/1.73 sqM) Glucose (74-99) mg/dL Calcium (8.4-10.2) mg/dL Total Bilirubin (0.2-1.3) mg/dL AST (17-59) U/L ALT (4-49) U/L Alkaline Phosphatase (38-126) U/L Troponin I <0.012 (0.000-0.034) ng/mL Total Protein (6.3-8.2) g/dL Albumin (3.5-5.0) g/dL Amylase (30-110) U/L Lipase (23-300) U/L Disposition Clinical Impression: Hyperbilirubinemia, Choledocholithiasis Disposition: ADMITTED IP TO THIS [facility] Condition: Stable Is patient prescribed a controlled substance at d/c from ED?: No Referrals: Juma Gibbs MD [Primary Care Provider] - 1-2 days Time of Disposition: 20:56 Decision to Admit Reason: Admit from EC Decision Date: 03/08/22 Decision Time: 20:56
--- NOTE | 2022-03-09 08:52 | P.CONS ---
History of Present Illness - Reason for Consult Consult date: 03/09/22 Choledocholithiasis Requesting physician: Shonna Tatum - Chief Complaint Abdominal pain - History of Present Illness This is a pleasant 77-year-old male who presented to the emergency department directed by Dr. Simmons for suspected choledocholithiasis. Patient has been hav ing abdominal pain over the last 2 weeks duration which was intermittent. Over the last 1-2 days he started having severe right upper quadrant pain yesterday was associated with nausea and vomiting. He has a asked medical history of hyperlipidemia, hypertension, cholecystectomy done approximately 3 years ago, he is unsure if he had gallstones at that time. Following that patient had a hernia repair done. An appointment with Dr. Simmons in the office and had an outpatient MRI of the pancreas never reported moderate diffuse intrahepatic and extrahepatic biliary dilation along with mild diffuse pancreatic ductal dilation secondary to round obstructing thought nonenhancing 6-7 mm lesion at the duodenal ampulla suspicious for remnant obstructing CBD stone. Patient was sent in to undergo ERCP. Today he states abdominal pain is improved, no nausea or vomiting. He has been nothing by mouth since midnight. He has been afebrile. Admitting labs WBC 19.8 hemoglobin 15 hematocrit 45 platelet count 274,000 INR 1.1 sodium 135 potassium 4.0 BUN 15 creatinine 0.76 total bilirubin 8.4 AST 258 ALT 273 alkaline phosphatase 508 amylase 50 lipase 221. Review of Systems REVIEW OF SYSTEMS: CARDIOPULMONARY: No chest pain or shortness of breath. Gastrointestinal: Upper quadrant pain. Associated with nausea vomiting. No hematemesis, coffee-ground emesis. No rectal bleeding, or melena. GENITOURINARY: No dysuria or hematuria. Dark urine. MUSCULOSKELETAL: Reports normal range of motion. SKIN: No rashes. Jaundice. ENDOCRINE: No chills, fevers. No excessive weight gain or loss. No polydipsia or polyuria. PSYCHIATRIC: Unremarkable. NEUROLOGY: No change in mental status. Denies dizziness, headache. ENT: Vision unremarkable. CONSTITUTIONAL: No recent weight loss. No fever, chills, night sweats. Past Medical History Past Medical History: Hyperlipidemia, Hypertension Additional Past Medical History / Comment(s): mumps History of Any Multi-Drug Resistant Organisms: None Reported Past Surgical History: Appendectomy, Hernia Repair Additional Past Surgical History / Comment(s): SHOULDER SX has had multiple hernia surgeries. Did have mesh, has since have remvoed. Past Anesthesia/Blood Transfusion Reactions: No Reported Reaction Past Psychological History: No Psychological Hx Reported Past Alcohol Use History: None Reported Past Drug Use History: None Reported - Past Family History Father Family Medical History: Myocardial Infarction ([place]) Additional Family Medical History / Comment(s): had history of cancer, from [place] Mother Family Medical History: Coronary Artery Disease (CAD) Medications and Allergies Home Medications Medication Instructions Recorded Confirmed Type Atorvastatin Calcium [Lipitor] 40 mg PO HS 10/06/19 03/08/22 History Acetaminophen/Diphenhydramine 1 tab PO HS 03/08/22 03/08/22 History [Tylenol PM 500-25mg] Losartan Potassium [Cozaar] 25 mg PO DAILY 03/08/22 03/08/22 History Allergies Allergy/AdvReac Type Severity Reaction Status Date / Time codeine Allergy Confusion Verified 03/08/22 21:15 Physical Exam Vitals: Vital Signs Temp Pulse Resp BP Pulse Ox 03/09/22 05:23 76 18 118/64 93 L 03/09/22 03:04 84 16 101/70 95 03/09/22 02:00 84 16 106/69 94 L 03/09/22 01:03 86 16 106/68 94 L 03/08/22 22:55 95 18 145/82 93 L 03/08/22 20:25 95 18 148/84 95 03/08/22 16:30 98.7 F 99 20 149/63 95 Intake and Output 03/08/22 03/09/22 03/09/22 22:59 06:59 14:59 Other: Weight 95.254 kg General appearance: The patient is alert, oriented, appears in no acute distress. HET: Head is normocephalic and atraumatic. Conjunctiva pink. Sclera anicteric. Neck: Supple without lymphadenopathy. Trachea midline. Heart: S1 S2. Regular rate and rhythm. Lungs: Clear to auscultation. Abdomen: Soft, upper quadrant tenderness, nondistended with bowel sounds. No guarding or rigidity. Skin: No rashes. Jaundice. Extremities: Normal skin color and turgor. No pedal edema. Neurological: No focal deficits. Alert and oriented x3. Results CBC & Chem 7: 03/08/22 16:56 03/08/22 16:56 Labs: Abnormal Lab Results - Last 24 Hours (Table) 03/08/22 03/08/22 Range/Units 16:56 16:56 WBC 19.8 H (3.8-10.6) k/uL Neutrophils # 18.2 H (1.3-7.7) k/uL Lymphocytes # 0.6 L (1.0-4.8) k/uL Sodium 135 L (137-145) mmol/L Carbon Dioxide 20 L (22-30) mmol/L Glucose 134 H (74-99) mg/dL Total Bilirubin 8.4 H (0.2-1.3) mg/dL AST 258 H (17-59) U/L ALT 273 H (4-49) U/L Alkaline Phosphatase 508 H (38-126) U/L Comments: KUB x-ray reports nonspecific bowel gas pattern without radiographic evidence for acute process. Gallbladder ultrasound reports cholecystectomy. Mild ectasia of the bile ducts which appear slightly increased compared to old exam. MRI of the pancreas reported moderate diffuse intrahepatic and extrahepatic biliary dilation along with mild diffuse pancreatic ductal dilation secondary to round obstructing thought nonenhancing 6-7 mm lesion at the duodenal ampulla suspicious for remnant obstructing CBD stone Assessment and Plan (1) Choledocholithiasis Narrative/Plan: 77-year-old man who presented to Dr. Simmons's office for abdominal pain with jaundice. History of cholecystectomy 3 years ago. Experiencing intermittent right upper quadrant pain however worsened in the last 2 weeks duration. Outpatient MRI of the pancreas shows concern for CBD stone. Patient was sent to the hospital for admission and to undergo ERCP. Patient jaundiced on presentation, with LFTs consistent with choledocholithiasis. Plan for ERCP this afternoon. Current Visit: Yes Status: Acute Code(s): K80.50 - CALCULUS OF BILE DUCT W/O CHOLANGITIS OR CHOLECYST W/O OBST SNOMED Code(s): 240451539 (2) Hyperbilirubinemia Current Visit: Yes Status: Acute Code(s): E80.6 - OTHER DISORDERS OF BILIRUBIN METABOLISM SNOMED Code(s): 51588005 (3) Abdominal pain Current Visit: No Status: Acute Code(s): R10.9 - UNSPECIFIED ABDOMINAL PAIN SNOMED Code(s): 03532408 Plan: 1. Continue symptomatic and supportive care 2. Pain medications as needed 3. Nothing by mouth 4. Antiemetics as needed 5. Indomethacin 100 mg per rectum one hour prior to procedure 6. Levaquin 500 mg IV one hour prior to procedure 7. Start IV fluids 8. Patient scheduled for ERCP, procedure discussed with patient including risks and benefits. Patient seemingly understands and agrees to proceed. Thank you for this consultation. Dr. Trina Simmons I agree with the dictator's note, documented as a scribe by Soniya Roberto.
[2022-03-09] MEDS ORDERED: INDOMETHACIN 50MG SUPPOSITORY RECTAL ONE (10:00)
[2022-03-09] MEDS ORDERED: LEVOFLOXACIN 500MG-D5W PMX 500 MG in DEXTROSE/WATER 1 100ML.BAG IVPB SCH (10:00)
[2022-03-09] MEDS: SODIUM CHLORIDE 0.9% 1,000 ML IV SCH ×2 (11:05→17:27)
[2022-03-09 12:59] LABS: Bilirubin,Unconjugated 2.1 mg/dL (0.0-1.1); Total Bilirubin 8.1 mg/dL (0.2-1.3)
[2022-03-09] MEDS ORDERED: IOPAMIDOL-300 50ML BTL INJ ONE (13:11)
--- NOTE | 2022-03-09 13:12 | P.PCN ---
Date of Procedure: 03/09/22 Procedure(s) Performed: Brief history: Patient is a 77 year-old pleasant white male scheduled for an ERCP as part of evaluation of abdominal pain and elevated serum transaminases/jaundice for the last 1 week. The patient has been having intermittent epigastric pain with abdominal bloating for the last 2 months. Labs about a week ago revealed bilirubin of 5.7 with elevated serum transaminases. Subsequently he had an MRCP done that showed evidence of stone in the distal common bile duct with intra-and extra hepatic biliary ductal dilation. Because of worsening symptoms he was admitted to the hospital yesterday and is scheduled for an ERCP today. Procedure performed: ERCP with biliary sphincterotomy and balloon stone extraction Preoperative diagnoses: Severe epigastric pain/elevated LFTs and jaundice and MRCP revealing distal CBD stone IV sedation per anesthesia: Procedure: After informed consent was obtained from the patient and after the risks benefits and complications including bleeding perforation and pancreatitis explained in detail the patient was brought into the endoscopy unit. The patient was placed in prone position and IV conscious sedation was administered by anesthesia under continuous monitoring. The Olympus side-viewing duodenoscope was then inserted into the mouth and esophagus intubated without any difficulty. The scope was gradually advanced into the stomach and duodenum. The major papilla was identified without any difficulty. Initial cannulation resulted in presentation the common bile duct and upon injection of the dye there was a 1 cm filling defect noted in the distal common bile duct. The proximal CBD was slightly dilated to 1 m. At this time the catheter was extended over the guidewire and a biliary sphincterotomy was performed and extended to 1.5 cm in length. Following this balloon catheter was passed over the guidewire into the proximal CBD and was inflated 11.5 mm balloon was gently withdrawn and a 1 cm stone was extracted without any difficulty.. Following this the balloon was passed through the proximal CBD few more times and no other stones were seen exiting the ampulla. At this time the procedure was terminated and the patient tolerated the procedure well. The pancreatic duct was intentionally not cannulated during the entire procedure. Impression: 1. Dilated common bile duct with a 1 cm filling defect in the distal common bile duct status post biliary sphincterotomy and balloon stone extraction as described above 2. Pancreatic duct intentionally not cannulated Recommendations: The findings of this examination were discussed with the patient as well as \his family.. Start him on a clear liquid diet. Repeat labs in the morning. It is feeling relatively be discharged home tomorrow with outpatient follow-up in 2 weeks.
[2022-03-09] MEDS ORDERED: IV FLUID CONTINUATION 900 ML IV ONE (13:14)
--- NOTE | 2022-03-09 23:01 | P.HPIM ---
History of Present Illness H&P Date: 03/09/22 Chief Complaint: Abdominal pain Patient is a 77-year-old male with known history of hypertension, hyperlipidemia was sent to ER by Dr. Simmons due to suspected choledocholithiasis. Patient states that he has been having abdominal pain mainly in the right upper quadrant associate with nausea for the past 2 weeks and did have worsening symptoms yesterday. Denied any chest pain or shortness of breath. No fever no chills. No cough or sputum production Patient had an appointment with Dr. Layton in the office and had outpatient MRI of the pancreas which showed moderate diffuse intrahepatic and extrahepatic biliary dilatation along with mild diffuse pancreatic ductal dilatation secondary to round obstructing thought nonenhancing 6 to 7 mm lesion at the duodenal ampulla suspicious for remanent obstructing CBD stone. Patient did have prior history of cholecystectomy. In the ER patient had KUB x-ray showed nonspecific bowel gas pattern without radiographic evidence for acute process. Gallbladder ultrasound showed cholecystectomy. There is mild ectasia of the bile ducts which appears slightly increased compared to old exam. Patient was admitted to the hospital and was taken to ERCP today. Laboratory data showed WBC 19.8, hemoglobin 15.3 and platelets 274 Sodium 134 potassium 4.0 chloride 103 bicarb is 20 BUN 15 and creatinine 0.76 Total bilirubin level is 8.1 conjugated 4.0 unconjugated 2.1 AST 258 ALT 273 alk phos 508 Troponin x1 negative amylase lipase not elevated Review of Systems Constitutional: Patient denies any fever or chills . no Generalized weakness. Abdomen: Patient denied any nausea or vomiting or abd. pain Cardiovascular: Patient denies any chest pain or short of breath no palpitations. Respiratory: patient denied any cough . no sputum production. No shortness of breath Neurologic: Patient denied any numbness or tingling headache. Musculoskeletal: Patient denies any complaints of joint swelling or deformity. Skin: Negative Psychiatric: Negative Endocrine: No heat or cold intolerance. No recent weight gain. Genitourinary: No dysuria or hematuria. All other 14 point ROS negative except the above Past Medical History Past Medical History: Hyperlipidemia, Hypertension Additional Past Medical History / Comment(s): mumps History of Any Multi-Drug Resistant Organisms: None Reported Past Surgical History: Appendectomy, Hernia Repair Additional Past Surgical History / Comment(s): SHOULDER SX has had multiple hernia surgeries. Did have mesh, has since have remvoed. Past Anesthesia/Blood Transfusion Reactions: No Reported Reaction Past Psychological History: No Psychological Hx Reported Past Alcohol Use History: None Reported Past Drug Use History: None Reported - Past Family History Father Family Medical History: Myocardial Infarction ([place]) Additional Family Medical History / Comment(s): had history of cancer, from [place] Mother Family Medical History: Coronary Artery Disease (CAD) Medications and Allergies Home Medications Medication Instructions Recorded Confirmed Type Atorvastatin Calcium [Lipitor] 40 mg PO HS 10/06/19 03/08/22 History Acetaminophen/Diphenhydramine 1 tab PO HS 03/08/22 03/08/22 History [Tylenol PM 500-25mg] Losartan Potassium [Cozaar] 25 mg PO DAILY 03/08/22 03/08/22 History Allergies Allergy/AdvReac Type Severity Reaction Status Date / Time codeine Allergy Confusion Verified 03/08/22 21:15 Physical Exam Vitals: Vital Signs Temp Pulse Resp BP Pulse Ox 03/09/22 05:23 76 18 118/64 93 L 03/09/22 03:04 84 16 101/70 95 03/09/22 02:00 84 16 106/69 94 L 03/09/22 01:03 86 16 106/68 94 L 03/08/22 22:55 95 18 145/82 93 L 03/08/22 20:25 95 18 148/84 95 03/08/22 16:30 98.7 F 99 20 149/63 95 Intake and Output 03/08/22 03/09/22 03/09/22 22:59 06:59 14:59 Intake Total 400 Balance 400 Intake: IV 400 Other: Weight 95.254 kg PHYSICAL EXAMINATION: Patient is lying in the bed comfortably, no acute distress, awake alert and oriented.. HEENT: Normocephalic. Neck is supple. Pupils reactive. Nostrils clear. Oral cavity is moist. Neck reveals no JVD, carotid bruits, or thyromegaly. CHEST EXAMINATION: Trachea is central. Symmetrical expansion. Lung herrera clear to auscultation and percussion. CARDIAC: Normal S1, S2 with no gallops. No murmurs ABDOMEN: Soft. Bowel sounds present. Nontender. No organomegaly. No abdominal bruits. Extremities: reveal no edema. No clubbing or cyanosis Neurologically awake, alert, oriented x3 with well-coordinated movements. No focal deficits noted Skin: No rash or skin lesions. Psychiatric: Coperative. Nonsuicidal, Musculoskeletal: No joint swelling or deformity. Normal range of motion. Results CBC & Chem 7: 03/08/22 16:56 03/08/22 16:56 Labs: Abnormal Lab Results - Last 24 Hours (Table) 03/08/22 03/08/22 03/08/22 Range/Units 16:56 16:56 16:56 WBC 19.8 H (3.8-10.6) k/uL Neutrophils # 18.2 H (1.3-7.7) k/uL Lymphocytes # 0.6 L (1.0-4.8) k/uL Sodium 135 L (137-145) mmol/L Carbon Dioxide 20 L (22-30) mmol/L Glucose 134 H (74-99) mg/dL Total Bilirubin 8.4 H 8.1 H (0.2-1.3) mg/dL Conjugated Bilirubin 4.0 H (0.0-0.3) mg/dL Unconjugated Bilirubin 2.1 H (0.0-1.1) mg/dL Delta Bilirubin 2.0 H (0.0-0.2) mg/dL AST 258 H (17-59) U/L ALT 273 H (4-49) U/L Alkaline Phosphatase 508 H (38-126) U/L Thrombosis Risk Factor Assmnt - DVT/VTE Prophylaxis DVT/VTE Prophylaxis: Pharmacologic Prophylaxis ordered Assessment and Plan Assessment: Abdominal pain secondary to choledocholithiasis with a dilated common bile duct and prior history of cholecystectomy Hyperbilirubinemia Elevated liver enzymes Hypertension Hyperlipidemia Leukocytosis DVT prophylaxis Plan: Patient is status post ERCP and balloon stone extraction. Patient with current IV hydration and follow-up CBC and CMP tomorrow. Abdominal pain is much improved now. Patient has been afebrile. Follow-up bilirubin level and liver enzymes tomorrow. Blood pressure medications and statins on hold. Follow-up closely. GI is on board. Time with Patient: Greater than 30
[2022-03-10] MEDS: SODIUM CHLORIDE 0.9% 1,000 ML IV SCH ×2 (01:29→08:33)
[2022-03-10] MEDS: HEPARIN SODIUM,PORCINE/PF 5,000 UNIT/0.5 ML SYRINGE SQ SCH ×2 (01:29→08:32)
--- NOTE | 2022-03-10 09:43 | P.PN ---
Subjective Progress Note Date: 03/10/22 Principal diagnosis: Choledocholithiasis This is a pleasant 77-year-old male who presented to the emergency department directed by Dr. Simmons for suspected choledocholithiasis. Patient has been having abdominal pain over the last 2 weeks duration which was intermittent. Over the last 1-2 days he started having severe right upper quadrant pain yesterday was associated with nausea and vomiting. He has a asked medical history of hyperlipidemia, hypertension, cholecystectomy done approximately 3 years ago, he is unsure if he had gallstones at that time. Following that patie nt had a hernia repair done. An appointment with Dr. Simmons in the office and had an outpatient MRI of the pancreas never reported moderate diffuse intrahepatic and extrahepatic biliary dilation along with mild diffuse pancreatic ductal dilation secondary to round obstructing thought nonenhancing 6-7 mm lesion at the duodenal ampulla suspicious for remnant obstructing CBD stone. Patient was sent in to undergo ERCP. Today he states abdominal pain is improved, no nausea or vomiting. He has been nothing by mouth since midnight. He has been afebrile. Admitting labs WBC 19.8 hemoglobin 15 hematocrit 45 platelet count 274,000 INR 1.1 sodium 135 potassium 4.0 BUN 15 creatinine 0.76 total bilirubin 8.4 AST 258 ALT 273 alkaline phosphatase 508 amylase 50 lipase 221. 03/10/2022: Patient was seen and examined as a follow-up. He is status post ERCP with large stone removal. Patient denies any abdominal pain, no nausea or vomiting. He has been tolerating clear liquid diet. Labs are currently pending this morning. He denies any fevers or chills. He is afebrile. Objective - Vital Signs Vital signs: Vital Signs Temp 97.9 F 03/10/22 06:50 Pulse 76 03/10/22 06:50 Resp 16 03/10/22 06:50 BP 133/82 03/10/22 06:50 Pulse Ox 98 03/10/22 06:50 FiO2 Intake & Output 03/09/22 03/10/22 03/10/22 18:59 06:59 18:59 Intake Total 1550 Balance 1550 Weight 95.254 kg Intake: IV 400 Intake, IV Titration 800 Amount Sodium Chloride 0.9% 1, 800 000 ml @ 130 mls/hr IV . [id number] [facility] Rx#:[id number] Oral 350 Other: # Voids 1 5 # Bowel Movements 0 - Exam General appearance: The patient is alert, oriented, appears in no acute distress. HET: Head is normocephalic and atraumatic. Conjunctiva pink. Sclera anicteric. Neck: Supple without lymphadenopathy. Abdomen: Soft, nontender, nondistended with bowel sounds. No guarding or rigidity. Extremities: Normal skin color and turgor. No pedal edema Skin: No rashes, no jaundice Neurological: No focal deficits. Alert and oriented. - Labs CBC & Chem 7: 03/08/22 16:56 03/08/22 16:56 Labs: Abnormal Lab Results - Last 24 Hours (Table) 03/08/22 Range/Units 16:56 Total Bilirubin 8.1 H (0.2-1.3) mg/dL Conjugated Bilirubin 4.0 H (0.0-0.3) mg/dL Unconjugated Bilirubin 2.1 H (0.0-1.1) mg/dL Delta Bilirubin 2.0 H (0.0-0.2) mg/dL Assessment and Plan (1) Choledocholithiasis Narrative/Plan: 77-year-old man who presented to Dr. Simmons's office for abdominal pain with jaundice. History of cholecystectomy 3 years ago. Experiencing intermittent right upper quadrant pain however worsened in the last 2 weeks duration. Outpatient MRI of the pancreas shows concern for CBD stone. Patient was sent to the hospital for admission and to undergo ERCP. Patient jaundiced on presentation, with LFTs consistent with choledocholithiasis. Plan for ERCP this afternoon. Patient underwent ERCP with large stone removal without any complications. Current Visit: Yes Status: Acute Code(s): K80.50 - CALCULUS OF BILE DUCT W/O CHOLANGITIS OR CHOLECYST W/O OBST SNOMED Code(s): 092455244 (2) Hyperbilirubinemia Current Visit: Yes Status: Acute Code(s): E80.6 - OTHER DISORDERS OF BILIRUBIN METABOLISM SNOMED Code(s): 60145681 (3) Abdominal pain Current Visit: No Status: Acute Code(s): R10.9 - UNSPECIFIED ABDOMINAL PAIN SNOMED Code(s): 72618188 Plan: 1. Continue symptomatic and supportive care 2. Patient may advance to low-fat diet 3. If repeat LFTs are trending down patient may be discharged home With follow- up with Dr. Simmons in 10-14 days Thank you for this consultation, we will sign off at this time. Dr. Trina Simmons I agree with the dictator's note, documented as a scribe by Soniya Roberto.
[2022-03-10 10:22] LABS: HCT 38.7 % (39.6-50.0); HGB 12.7 g/dL (13.0-17.0); MCH 29.5 pg (27.0-32.0); MCHC 32.8 g/dL (32.0-37.0); Mean Platelet Volume 10.7 fL (9.5-12.2); NRBC Per 100 WBC 0 /100 WBCS (0.0-0.0); Platelet Count 245 X 10*3/uL (140-440); RDW 13.8 % (11.5-14.5); WBC 8.65 X 10*3/uL (4.50-10.00)
[2022-03-10 10:53] LABS: African American GFR (CKD) 95.1 (60.0-200.0); Albumin 2.9 g/dL (3.8-4.9); Albumin/Globulin Ratio 1.38 (1.60-3.17); Anion Gap 9.6 mmol/L (10.00-18.00); BUN/Creat Ratio 21.11 Ratio (12.00-20.00); Calcium 8.5 mg/dL (8.7-10.3); Carbon Dioxide 23.4 mmol/L (20.0-27.5); Globulin 2.1 g/dL (1.6-3.3); Non-African American GFR(CKD) 82.1 (60.0-200.0); Potassium 4.1 mmol/L (3.5-5.5); Total Bilirubin 5.2 mg/dL (0.30-1.20)
[2022-03-10 15:33] VITALS: BP 119/80; PULSE 82; RESP 17; TEMP 98.3
== END 2022-03-10 15:50 | disposition home or self-care (01) | DRG 446 ==
LOC: EC 15:58 → 5NMEDONC 21:50 → 4SSUR 03-09 12:15
PROVIDERS: ADMIT Hospitalist; ATTEND Hospitalist
PROC: 0FC98ZZ Extirpation of Matter from Common Bile Duct, Via Natural or Artificial Opening Endoscopic (ICD-10-PCS; principal; 2022-03-09 07:30)
DX: K80.41 Calculus of bile duct with cholecystitis, unspecified, with obstruction (principal); E78.5 Hyperlipidemia, unspecified; I10 Essential (primary) hypertension; K86.89 Other specified diseases of pancreas; Z79.899 Other long term (current) drug therapy; Z90.49 Acquired absence of other specified parts of digestive tract; Z88.2 Allergy status to sulfonamides; Z87.19 Personal history of other diseases of the digestive system
CPT/HCPCS: 36415; 43262; 43264; 43277; 74018; 74183; 76705; 80053; 82150; 82248; 83690; 84484; 85025; 85027; 85610; 85730; 86301; 93005; 96361; 96374; 96375; 99285

== ENCOUNTER → 2022-03-08 | Outpatient (CLI) | payer MEDICARE, BC ==
--- NOTE | 2022-03-08 08:33 | MR ---
EXAMINATION TYPE: MR pancreas / mrcp wo/w con DATE OF EXAM: 03/08/2022 COMPARISON: Gallbladder ultrasound October 06, 2019. HISTORY: Severe abdominal pain. Gallbladder removed 3 years ago. CONTRAST: Standard multiplanar, multisequence MRI departmental protocol images were obtained without contrast a nd with 9 mL intravenous Gadavist gadolinium contrast. Thin and thick slice MRCP imaging performed t [facility] MRI scanner. FINDINGS: Liver/gallbladder/pancreas/bladder system: Liver is normal in size without signal dropout. There is n o solid or cystic mass clearly seen. Gallbladder noted surgically absent. Pancreas is normal in size without solid or cystic mass. MRCP imaging shows dilated main pancreatic duct measuring up to 5 mm in the head and body. There is e xtrahepatic biliary dilatation measuring up to 18 mm a level of the desmond hepatis. There is moderate intrahepatic biliary dilatation. The level of the duodenal ampulla there is a round 6 to 7 mm nonenha ncing T2 hypointense structure suspicious for large CBD stone seen in both coronal image 22. Other: Lung bases are grossly clear. Spleen and both adrenal glands appear within normal limits. Ther e are central simple parapelvic cysts in both kidneys. No hydronephrosis seen bilaterally. Diverticul a the distal transverse and left colon are present. Diverticula and visualized portion of the slightl y redundant sigmoid colon is also partially imaged. No AAA. Multilevel spurring and disc space narrow ing with endplate changes greatest at L4-L5 level is noted. Slight scoliotic curvature distally is se en. IMPRESSION: Moderate diffuse intrahepatic and extra hepatic biliary dilatation along with mild diffus e pancreatic ductal dilatation secondary to round obstructing thought nonenhancing 6 to 7 mm lesion a t the duodenal ampulla suspicious for remnant obstructing CBD stone.
[2022-03-08 10:49] LABS: Basophils # (A) 0.03 X 10*3/uL (0.00-0.10); Basophils % (A) 0.2 %; Eosinophils # (A) 0.01 X 10*3/uL (0.04-0.35); Eosinophils % (A) 0.1 %; HCT 47.5 % (39.6-50.0); HGB 15.3 g/dL (13.0-17.0); Immature Grans, Automated 0.4 %; Lymphocytes # (A) 0.57 X 10*3/uL (0.90-5.00); Lymphocytes % (A) 3.4 %; MCH 29.2 pg (27.0-32.0); MCHC 32.2 g/dL (32.0-37.0); MCV 90.6 fL (80.0-97.0); Mean Platelet Volume 10.4 fL (9.5-12.2); Monocytes # (A) 1.48 X 10*3/uL (0.20-1.00); Monocytes % (A) 8.9 %; NRBC Per 100 WBC 0 /100 WBCS (0.0-0.0); Neutrophils # (A) 14.39 X 10*3/uL (1.80-7.70); Platelet Count 255 X 10*3/uL (140-440); RBC 5.24 X 10*6/uL (4.40-5.60); RDW 13.5 % (11.5-14.5); WBC 16.54 X 10*3/uL (4.50-10.00)
[2022-03-08 11:15] LABS: African American GFR (CKD) 95.1 (60.0-200.0); Albumin 3.9 g/dL (3.8-4.9); Albumin/Globulin Ratio 1.18 (1.60-3.17); Anion Gap 12.7 mmol/L (10.00-18.00); BUN/Creat Ratio 18.78 Ratio (12.00-20.00); Blood Urea Nitrogen 16.9 mg/dL (9.0-27.0); Calcium 9.9 mg/dL (8.7-10.3); Carbon Dioxide 20.3 mmol/L (20.0-27.5); Globulin 3.3 g/dL (1.6-3.3); Non-African American GFR(CKD) 82.1 (60.0-200.0); Potassium 4.3 mmol/L (3.5-5.5); Total Bilirubin 4.9 mg/dL (0.30-1.20); Total Protein 7.2 g/dL (6.2-8.2)
== END | disposition home or self-care (01) ==
LOC: RADMRIMAIN 06:31
PROVIDERS: ATTEND Internal Medicine Gastroenterology
DX: K83.8 Other specified diseases of biliary tract (principal); K86.89 Other specified diseases of pancreas; R93.2 Abnormal findings on diagnostic imaging of liver and biliary tract; R74.01 Elevation of levels of liver transaminase levels
CPT/HCPCS: 80053; 85025; 86301; 74183; A9585